=== PATIENT | female | born 1970 | race American Indian/Alaskan Native ===

== ENCOUNTER 2017-01-09 09:09 | Emergency (ER) | payer SELFPAY ==
--- NOTE | 2017-01-09 10:55 | Emergency Department Report ---
Chief Complaint: Abdominal Pain Stated Complaint: V/D/N Time Seen by Provider: 01/09/17 10:48 - HPI History of Present Illness: 46-year-old female presents with lower abdominal cramping and nausea vomiting diarrhea times Saturday night. Patient states she started vomiting on Saturday after she lifted client's house. Patient states about 4 episodes of vomiting since Saturday. Patient states symptoms are worse at night. Patient states nonbloody diarrhea3 episodes since Saturday. Patient states she takes no medication and is allergic to no medication. Patient denies fevers/chills/dysuria/pelvic pain/vaginal bleeding/shortness of breath chest pain/dizziness or any other problems - ROS Review of Systems: Noted in HPI as noted - Exam Vital Signs: Vital Signs 01/09/17 10:24 Temperature 98.0 F Pulse Rate 82 Respiratory 20 Rate Blood Pressure 155/92 O2 Sat by Pulse 98 Oximetry Physical Exam: GENERAL: Alert and oriented x3, no apparent distress, Normal Gait, atraumatic. NECK: Supple. Non edematous, No carotid bruits. No lymphadenopathy or thyromegaly. LUNGS: Symetrical with respiration, No wheezing, no rales or crackles, CTAB. HEART: S1, S2 present, regular rate and rhythm without murmur, no rubs, no gallops. ABDOMEN: No organomegaly was noted,Positive bowel sounds, soft, and non- distended. . Nontender to palpation on all Quadrants, NO CVA tenderness. MSE screening note: Focused history and physical exam performed. Due to findings the following was ordered: ED Medical Decision Making - Lab Data Result diagrams: 01/09/17 11:04 - Medical Decision Making Labs ordered. Patient Was Seen in [facility] Labs Normal. ED Disposition for MSE Condition: Stable Instructions: Abdominal Pain (ED)
[2017-01-09 11:20] LABS: Hematocrit 41.6 % (30.3-42.9); Hemoglobin 13.4 gm/dl (10.1-14.3); Mean Corpuscular HGB Conc 32 % (30-34); Mean Corpuscular Hemoglobin 28 pg (28-32); Mean Corpuscular Volume 87 fl (79-97); Platelet Count 312 K/mm3 (140-440); Red Blood Count 4.77 M/mm3 (3.65-5.03); Red Cell Distribution Width 15.5 % (13.2-15.2); White Blood Count 5.1 K/mm3 (4.5-11.0)
[2017-01-09 11:21] LABS: Basophils % (Auto) 0.3 % (0.0-1.8); Eosinophils % (Auto) 2.5 % (0.0-4.3)
[2017-01-09 11:48] LABS: Alanine Aminotransferase 8 units/L (7-56); Albumin 4.2 g/dL (3.9-5); Alkaline Phosphatase 100 units/L (35-129); Anion Gap 19 mmol/L; BUN/Creatinine Ratio 7.27; Bilirubin,Total 0.2 mg/dL (0.1-1.2); Blood Urea Nitrogen 8 mg/dL (7-17); Carbon Dioxide 22 mmol/L (22-30); Chloride 97.6 mmol/L (98-107); Glucose 92 mg/dL (65-100); Lipase 23 units/L (13-60); Potassium 4.2 mmol/L (3.6-5.0); Sodium 134 mmol/L (137-145); Total Protein 8.6 g/dL (6.3-8.2)
[2017-01-09 13:27] LABS: Bilirubin,Urine NEG (Negative); Blood,Urine NEG (Negative); Ketones,Urine NEG (Negative); Leukocyte Esterase,Urine NEG (Negative); Mucus,Urine FEW /HPF; Nitrite,Urine NEG (Negative); Protein,Urine <15 mg/dL mg/dL (Negative); Urobilinogen,Urine < 2.0 mg/dL (<2.0); WBC,Urine < 1.0 /HPF (0.0-6.0)
[2017-01-09] MEDS ORDERED: ZOFRAN ODT PO ONE (15:24)
--- NOTE | 2017-01-09 15:33 | Emergency Department Report ---
Vomiting/Diarrhea - HPI Chief Complaint: Abdominal Pain Stated Complaint: V/D/N Time Seen by Provider: 01/09/17 15:02 Symptoms: Yes Watery Diarrhea, Yes Contacts w/ Similar Symptoms, No Bloody diarrhea, No Fever, No Able to Tolerate Fluids, No Recent Unusual Foods, No Recent Untreated Water, No Recent use of Antibiotics, No Family w/ Similar Symptoms, No Rash, No Hematuria, No Recent URI Symptoms Other History: 46-year-old female comes in for complaint of nausea vomiting diarrhea for 3 days. She now reports she is having some lower abdominal cramps but she reports she felt that her cycle getting ready to come on. Patient reports that is worse at night. She's not been able to hold much food down. 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 She denies any fever no chills. ED Review of Systems ROS: Stated complaint: V/D/N Other details as noted in HPI Constitutional: denies: chills, fever ENT: denies: ear pain, throat pain Respiratory: denies: cough, shortness of breath, wheezing Cardiovascular: denies: chest pain, palpitations Gastrointestinal: nausea, vomiting, diarrhea Genitourinary: denies: urgency, dysuria, discharge Musculoskeletal: denies: back pain, joint swelling, arthralgia Skin: denies: rash, lesions Neurological: denies: headache, weakness, paresthesias ED Past Medical Hx - Medications Home Medications: Home Medications Medication Instructions Recorded Confirmed Last Taken Type Ondansetron [Zofran ODT TAB] 8 mg PO Q8HR #12 tab.rapdis 01/09/17 Unknown Rx Vomiting Diarrhea Exam - Exam General: Vital signs noted. No distress. Alert and acting appropriately. HEENT: Yes Moist Mucous Membranes, No Pharyngeal Erythema, No Pharyngeal Exudates, No Rhinorrhea, No Conjuctival Injection, No Frontal Tenderness, No Maxillary Tenderness Abdomen: Tenderness: No, Peritoneal Signs: No, Distention: No Skin exam: Rash: No, Edema: No, Normal turgor: Yes Neurologic: Alert and oriented, no deficits. Musculoskeletal: Unremarkable. ED Course Vital Signs 01/09/17 10:24 Temperature 98.0 F Pulse Rate 82 Respiratory 20 Rate Blood Pressure 155/92 O2 Sat by Pulse 98 Oximetry - Reevaluation(s) Reevaluation #1: 01/09/17 16:34 Patient reports that the Zofran has helped her a lot. We would discharge patient at this time. ED Medical Decision Making - Lab Data Result diagrams: 01/09/17 11:04 01/09/17 11:04 - Medical Decision Making Patient been evaluated by this provider fast track Zofran was given to the patient as well as a by mouth trial. We discharged patient on Zofran when necessary. The patient that she needs to follow-up with primary care provider if this persists. Also discussed the patient that she needs to consumer Brat diet. Verbalized understanding. Critical care attestation.: If time is entered above; I have spent that time in minutes in the direct care of this critically ill patient, excluding procedure time. ED Disposition Clinical Impression: Nausea, vomiting, and diarrhea Disposition: DISCHARGED TO HOME OR SELFCARE Is pt being admited?: No Does the pt Need Aspirin: No Condition: Stable Instructions: Abdominal Pain (ED) Additional Instructions: Recommend taken the Zofran when necessary every 8 hours. Recommend BRAT diet. If gets worse follow-up with her primary care provider. Prescriptions: Ondansetron [Zofran ODT TAB] 8 mg PO Q8HR #12 tab.rapdis Referrals: PRIMARY CAREMD [Primary Care Provider] - 3-5 Days EDUARDO DE LA CRUZ MD [Staff Physician] - 3-5 Days Forms: Work/School Release Form(ED)
[2017-01-09 16:53] VITALS: BP 136/84
== END 2017-01-09 16:38 | disposition home or self-care (01) ==
LOC: ED 09:09
DX: R11.2 Nausea with vomiting, unspecified (principal); R19.7 Diarrhea, unspecified; R10.30 Lower abdominal pain, unspecified; Z79.899 Other long term (current) drug therapy
CPT/HCPCS: 36415; 80053; 81001; 81025; 83690; 84703; 85025; Q0162